=== PATIENT | male | born 1980 | race Caucasian/White ===

== ENCOUNTER 2025-06-11 06:43 | Day surgery (SDC) | payer OTHER, SELFPAY ==
[2025-04-17 14:45] VITALS: BMI 21.9
[2025-05-31 13:47] VITALS: BMI 21.9
[2025-06-11 07:10] VITALS: BP 126/80; PULSE 69; RESP 16; TEMP 36.9; O2SAT 100
[2025-06-11] MEDS: LACTATED RINGERS 1,000 ML 150 ML IV CONT (07:30)
--- NOTE | 2025-06-11 08:22 | P.HP_ITS ---
H&P: HPI History of Present Illness Date/Time: 06/11/25 08:22 Chief Complaint: Screening colonoscopy Narrative: This is the patient's first colonoscopy. There are no GI symptoms and there is no family history of colorectal cancer. Review of Systems Review of Systems: All systems reviewed & are unremarkable except as noted in HPI and below PMFSH Past Medical History Medical History Closed displaced fracture of body of hamate of right wrist Family History Family History Mother Hyperlipidemia Social History Social History Social History: Smoking status: Never smoker Second hand tobacco smoke exposure: No Alcohol intake: current Drinks per week: 4 Substance use: never Substance use type: does not use Do You Feel Safe in your Home?: Yes Lack of Transportation: No Lack of Food: Never True Current Housing: I Have Housing Concerned About Future Housing: No Difficulty Paying Gas/Electric Bills: No Difficulty Paying for Meds: No Currently Unemployed: No Education: Don't Know Difficulty w/ Childcare or Family Care: No Living arrangements: with family Occupation/Education: occupation Gender identity (if verbalized by the patient): Male Sexual Orientation (if Verbalized by the Patient): Straight or Heterosexual Spiritual care concerns: No Meds Home Medications and Allergies Home Medications ?Medication ?Instructions ?Recorded ?Confirmed ?Type No Home Medications 04/03/25 06/11/25 H istory Allergies Allergy/AdvReac Type Severity Reaction Status Date / Time No Known Allergies Allergy Unknown Verified 06/11/25 07:09 Vital Signs Vital Signs - 24 hr 06/11/25 07:10 Temperature 98.4 F Pulse Rate 69 Respiratory Rate 16 Blood Pressure 126/80 Pulse Oximetry 100 Oxygen Delivery Room Air Exam Const: General: cooperative and healthy appearing Resp: Effort & Inspection: normal respiratory effort and able to speak in complete sentences Auscultation: clear to auscultation bilaterally Cardio: Rate: regular rate Rhythm: regular rhythm GI: Inspection: normal to inspection GI Palp: No No hepatosplenomegaly present Auscultation: normal bowel sounds Rectal Exam: deferred Skin: General skin exam: normal color Psych: Appearance: grossly normal Mental Status: mental status grossly norm al Assessment and Plan Assessment and plan (1) Encounter for screening colonoscopy: Code(s): Z12.11 - Encounter for screening for malignant neoplasm of colon Status: Acute Assessment and Plan: The patient is deemed a good candidate for the procedure. Consent signed. Will proceed.
--- NOTE | 2025-06-11 08:23 | P.PNAN_ITS ---
Anes - Initial Pre Proc Eval Procedure: Operation Date: 06/11/25 08:30 Proposed Procedures p Screening Colonoscopy - Sean Moncada MD Date/Time: 06/11/25 08:23 Surgeon: Sean Moncada MD Pre Op Diagnosis: Encounter for screening for malignant neoplasm of Patient Data Age: 44 Gender: M Height: 1.8 m Weight: 72.2 kg Last Vital Signs Temp 36.9 C 06/11/25 07:10 Pulse 69 06/11/25 07:10 Resp 16 06/11/25 07:10 BP 126/80 06/11/25 07:10 Pulse Ox 100 06/11/25 07:10 O2 Del Method Room Air 06/11/25 07:10 Allergies Allergy/AdvReac Type Severity Reaction Status Date / Time No Known Allergies Allergy Unknown Verified 06/11/25 07:09 Home Medications ?Medication ?Instructions ?Recorded ?Confirmed ?Type No Home Medications 04/03/25 06/11/25 H istory Patient hx anesthesia problems: none Family hx anesthesia problems: none Results Review: All pre-operative results and documents have been reviewed as part of the pre- operative evaluation. [facility] Past Medical History Medical History Closed displaced fracture of body of hamate of right wrist Family History Family History Mother Hyperlipidemia Social History Social History Social History: Smoking status: Never smoker Second hand tobacco smoke exposure: No Alcohol intake: current Drinks per week: 4 Substance use: never Substance use type: does not use Do You Feel Safe in your Home?: Yes Lack of Transportation: No Lack of Food: Never True Current Housing: I Have Housing Concerned About Future Housing: No Difficulty Paying Gas/Electric Bills: No Difficulty Paying for Meds: No Currently Unemployed: No Education: Don't Know Difficulty w/ Childcare or Family Care: No Living arrangements: with family Occupation/Education: occupation Gender identity (if verbalized by the patient): Male Sexual Orientation (if Verbalized by the Patient): Straight or Heterosexual Spiritual care concerns: No Anes - Eval Final PreProcedure Day of Procedure 06/11/25 08:23 Heart: regular rate and rhythm Lungs: clear to auscultation Airway: Mallampati scale class II Neurological: alert and oriented Last oral intake: >/= 8 hours ASA classification: II Anesthetic plan: proceed Anesthesia type and monitoring: monitored anesthesia care Results Review: All pre-operative results and documents have been reviewed as part of the pre- operative evaluation. Informed Consent: The patient's anesthetic plan and its attendant risks and benefits were discussed with the patient/family/POA. Questions were solicited and answers provided to the satisfaction of the patient/family/POA.
[2025-06-11] MEDS: SIMETHICONE ORAL SUSPENSION 20 MG/0.3 ML 30 ML BOTTLE 0.6 ML IRRIGATION (08:40)
[2025-06-11 08:49] VITALS: BP 98/75; PULSE 79; RESP 18; O2SAT 98
--- NOTE | 2025-06-11 08:52 | WPDANESPN ---
Anes - Prog Note Post-Op Date/Time: 06/11/25 08:52 Cardiovascular status: normal Respiratory status: normal Airway patency: baseline Mental status: baseline Post-Op hydration status: normal Vital Signs: Last Vital Signs Temp 36.9 C 06/11/25 07:10 Pulse 69 06/11/25 07:10 Resp 16 06/11/25 07:10 BP 126/80 06/11/25 07:10 Pulse Ox 100 06/11/25 07:10 O2 Del Method Room Air 06/11/25 07:10 Pain Score (VAS): 0 Patient Feedback: Patient satisfied with anesthetic care.
[2025-06-11 08:59] VITALS: BP 97/68; PULSE 62; RESP 18; O2SAT 97
[2025-06-11 09:09] VITALS: BP 107/85; PULSE 76; RESP 18; O2SAT 100
== END 2025-06-11 09:30 | disposition home or self-care (01) ==
PROVIDERS: PCP Family Medicine; Referring Provider Family Medicine; Visit Provider Internal Medicine Gastroenterology
PROC: 0DJD8ZZ Inspection of Lower Intestinal Tract, Via Natural or Artificial Opening Endoscopic (ICD-10-PCS; CPT 45378; principal; 2025-06-11 08:30)
DX: Z12.11 Encounter for screening for malignant neoplasm of colon (principal)
CPT/HCPCS: 45378